=== PATIENT | female | born 2000 | race Caucasian/White ===

== ENCOUNTER 2019-05-20 21:21 | Observation (INO) ==
[2019-05-20 22:13] LABS: Bilirubin,Urine Negative (Negative); Blood,Urine Negative (Negative); Clarity,Urine Cloudy (Clear); Color,Urine Yellow (Yellow); Glucose,Urine (UA) Normal (Normal); Ketones,Urine Negative (Negative); Leukocyte Esterase,Urine Large (Negative); Nitrite,Urine Negative (Negative); Protein,Urine Negative (Neg-Trace); Specific Gravity,Urine 1.019 (1.010-1.025); Urobilinogen,Urine Normal (Normal)
[2019-05-20 22:14] LABS: Bacteria,Urine Moderate per hpf (None-Few); Hyaline Casts,Urine None Seen per lpf (None-Few); RBC,Urine 0-3 per hpf (0-3); Squamous Epithelial Cell,Urine Many per lpf (None-Few); WBC,Urine 50-100 per hpf (0-3)
[2019-05-21 00:05] LABS: Candida DNA DETECTED (Not Detect); Gardnerella DNA DETECTED (Not Detect); Trichomonas DNA Not Detected (Not Detect)
== END 2019-05-20 23:00 | disposition home or self-care (01) ==
LOC: 1NENULAB
PROVIDERS: ADMIT Registered Nurse; ATTEND Registered Nurse

== ENCOUNTER → 2019-06-21 23:28 | Observation (INO) ==
[~2019-06-21 23:28] MED LIST: EPHEDrine 50 MG/ML VIAL IVP PRN; Epidural Premix (fent/bupiv) 110 ML EP SCH
== END | disposition home or self-care (01) ==
LOC: 1NENULAB
PROVIDERS: ADMIT Obstetrics & Gynecology; ATTEND Obstetrics & Gynecology

== ENCOUNTER 2019-07-10 11:11 | Inpatient (IN) ==
[2019-07-10] MEDS ORDERED: Famotidine 20 MG/2 ML VIAL IVP PRN (11:14)
[2019-07-10] MEDS ORDERED: Naloxone 0.4 MG/ML INJ IVP PRN (11:14)
[2019-07-10] MEDS ORDERED: Metoclopramide 10 MG/2 ML VIAL IVP PRN (11:14)
[2019-07-10] MEDS ORDERED: Penicillin G Potassium 5,000,000 UNIT in 0.9 % Sodium Chloride Mini Bag 100 ML IVPB ONE (11:30)
[2019-07-10 11:49] LABS: Basophils % 0.2 %; Eosinophils % 0.4 %; Hematocrit 35.6 % (35.3-44.9); Hemoglobin 11.6 g/dL (11.5-15.4); Immature Granulocytes % 0.3 % (0-4); Lymphocytes # 1.4 K/mcL (0.6-4.6); Mean Corpuscular HGB Conc 32.6 g/dL (31.6-35.5); Mean Corpuscular Hemoglobin 25.8 pg (28.0-33.3); Mean Corpuscular Volume 79.1 fL (83.0-100.0); Mean Platelet Volume 10.6 fL (9.4-12.4); Monocytes # 0.4 K/mcL (0.0-1.3); Monocytes % 4.5 %; Neutrophils # 7.2 K/mcL (1.6-8.9); Platelet Count 230 K/mcL (140-400); Red Cell Distribution Width 14.1 % (11.5-14.5); Segmented Neutrophils % 79.6 %
[2019-07-10] MEDS ORDERED: miSOPROStoL 100 MCG TABLET PO STA (11:50)
[2019-07-10] MEDS: Ringers Solution, Lactated 1,000 ML IVC SCH ×3 (11:50→22:53)
[2019-07-10 11:58] LABS: Amphetamine Screen,Urine Negative ng/mL (Cutoff=1000); Barbiturate Screen,Urine Negative ng/mL (Cutoff=200); Benzodiazepines Screen,Urine Negative ng/mL (Cutoff=200); Cannabinoid Screen,Urine Negative ng/mL (Cutoff = 50); Cocaine Screen,Urine Negative ng/mL (Cutoff= 300); Opiate Screen,Urine Negative ng/mL (Cutoff=300); Phencyclidine Screen,Urine Negative ng/mL (Cutoff=25)
[2019-07-10] MEDS ORDERED: Terbutaline 1 MG/ML VIAL SQ ONE (11:58)
[2019-07-10] MEDS ORDERED: miSOPROStoL 25 MCG TABLET PO STA (12:01)
[2019-07-10] MEDS ORDERED: EPHEDrine 50 MG/ML VIAL IVP PRN (12:36)
[2019-07-10] MEDS: Penicillin G Potassium 2,500,000 UNIT in 0.9 % Sodium Chloride 100 ML IVPB SCH ×2 (16:04→20:04)
[2019-07-10] MEDS: Oxytocin 20 units/ LR 1000 mL 20 UNIT/1,000 ML BAG IVC SCH (18:17)
[2019-07-10] MEDS: Ondansetron 4 MG/2 ML VIAL IVP PRN (20:57)
[2019-07-10] MEDS ORDERED: *HR* FentaNYL (PF) 100 MCG/2 ML VIAL IVP PRN (20:59)
[2019-07-10] MEDS: Epidural Premix (fent/bupiv) 110 ML EP SCH (22:53)
[2019-07-11] MEDS: Penicillin G Potassium 2,500,000 UNIT in 0.9 % Sodium Chloride 100 ML IVPB SCH (03:59)
[2019-07-11] MEDS: Epidural Premix (fent/bupiv) 110 ML EP SCH (04:00)
[2019-07-11] MEDS: Ondansetron 4 MG/2 ML VIAL IVP PRN (04:10)
[2019-07-11] MEDS: Oxytocin 20 units/ LR 1000 mL 20 UNIT/1,000 ML BAG IVC SCH (07:36)
[2019-07-11] MEDS ORDERED: Rho Immune Globulin 1,500 UNIT SYRINGE IM PRN (07:58)
[2019-07-11] MEDS ORDERED: Oxytocin 20 units/ LR 1000 mL 20 UNIT/1,000 ML BAG IVC SCH (07:58)
[2019-07-11] MEDS ORDERED: Measles/Mumps/Rubella Vacc 0.5 ML VIAL SQ PRN (07:58)
[2019-07-11] MEDS: Prenatal Vit/FA 1 EACH TABLET PO SCH (09:58)
[2019-07-11] MEDS: Acetaminophen 325 MG TABLET PO PRN ×2 (12:44→20:04)
[2019-07-12 04:40] LABS: Basophils % 0.2 %; Eosinophils # 0.1 K/mcL (0.0-0.6); Hematocrit 29.3 % (35.3-44.9); Immature Granulocytes % 0.6 % (0-4); Lymphocytes # 2.2 K/mcL (0.6-4.6); Lymphocytes % 18.9 %; Mean Corpuscular HGB Conc 32.8 g/dL (31.6-35.5); Mean Corpuscular Hemoglobin 26.4 pg (28.0-33.3); Mean Corpuscular Volume 80.5 fL (83.0-100.0); Mean Platelet Volume 10.2 fL (9.4-12.4); Monocytes # 0.6 K/mcL (0.0-1.3); Monocytes % 5.5 %; Neutrophils # 8.5 K/mcL (1.6-8.9); Platelet Count 158 K/mcL (140-400); Red Blood Count 3.64 M/mcL (3.82-4.97); Red Cell Distribution Width 14.3 % (11.5-14.5); Segmented Neutrophils % 73.8 %; White Blood Count 11.5 K/mcL (4.3-11.1)
[2019-07-12 05:04] LABS: Hemoglobin 9.6 g/dL (11.5-15.4)
[2019-07-12 07:35] VITALS: BP 118/83
[2019-07-12] MEDS: Prenatal Vit/FA 1 EACH TABLET PO SCH (09:44)
== END 2019-07-12 13:08 | disposition home or self-care (01) | DRG 807 ==
LOC: 1NENULAB 11:11 → 1NENUOBS 07-11 07:44
PROVIDERS: ADMIT Obstetrics & Gynecology; ATTEND Obstetrics & Gynecology

== ENCOUNTER 2021-01-26 12:35 | Inpatient (IN) ==
[2021-01-26] MEDS ORDERED: Famotidine 20 MG/2 ML VIAL IVP PRN (12:50)
[2021-01-26] MEDS ORDERED: Naloxone 0.4 MG/ML INJ IVP PRN (12:50)
[2021-01-26] MEDS ORDERED: Ondansetron 4 MG/2 ML VIAL IVP PRN (12:50)
[2021-01-26] MEDS ORDERED: Lidocaine 1% 20 ML MDV INFILT PRN (12:50)
[2021-01-26] MEDS ORDERED: Metoclopramide 10 MG/2 ML VIAL IVP PRN (12:50)
[2021-01-26] MEDS ORDERED: Azithromycin 500 MG in 0.9 % Sodium Chloride 250 ML IVPB PRN (12:50)
[2021-01-26] MEDS ORDERED: *HR* Nalbuphine 10 MG/ML AMPUL IV PRN (12:50)
[2021-01-26] MEDS ORDERED: miSOPROStoL 25 MCG TABLET PO PRN (13:40)
[2021-01-26 13:53] LABS: Basophils % 0.2 %; Eosinophils % 0.4 %; Hematocrit 31.8 % (35.3-44.9); Hemoglobin 10.4 g/dL (11.5-15.4); Immature Granulocytes % 0.7 % (0-4); Lymphocytes # 1.8 K/mcL (0.6-4.6); Lymphocytes % 17.9 %; Mean Corpuscular HGB Conc 32.7 g/dL (31.6-35.5); Mean Corpuscular Hemoglobin 26.5 pg (28.0-33.3); Mean Corpuscular Volume 81.1 fL (83.0-100.0); Mean Platelet Volume 10.4 fL (9.4-12.4); Monocytes # 0.5 K/mcL (0.0-1.3); Monocytes % 5.4 %; Neutrophils # 7.4 K/mcL (1.6-8.9); Platelet Count 214 K/mcL (140-400); Red Blood Count 3.92 M/mcL (3.82-4.97); Red Cell Distribution Width 14.3 % (11.5-14.5); Segmented Neutrophils % 75.4 %; White Blood Count 9.8 K/mcL (4.3-11.1)
[2021-01-26 13:58] LABS: Amphetamine Screen,Urine Negative ng/mL (Cutoff=1000); Barbiturate Screen,Urine Negative ng/mL (Cutoff=200); Benzodiazepines Screen,Urine Negative ng/mL (Cutoff=200); Cannabinoid Screen,Urine Negative ng/mL (Cutoff = 50); Cocaine Screen,Urine Negative ng/mL (Cutoff= 300); Opiate Screen,Urine Negative ng/mL (Cutoff=300); Phencyclidine Screen,Urine Negative ng/mL (Cutoff=25)
[2021-01-26] MEDS: Ringers Solution, Lactated 1,000 ML IVC SCH ×2 (17:58→18:43)
[2021-01-26] MEDS ORDERED: *HR* FentaNYL (PF) 100 MCG/2 ML VIAL EP ONE (18:07)
[2021-01-26] MEDS ORDERED: EPHEDrine 50 MG/ML VIAL IVP PRN (18:07)
[2021-01-26] MEDS ORDERED: Ropivacaine/PF 0.2% 20 ML VIAL EP ONE (18:07)
[2021-01-26] MEDS ORDERED: *HR* FentaNYL (PF) 100 MCG/2 ML VIAL ONE (18:12)
[2021-01-26] MEDS ORDERED: Epidural Premix (fent/bupiv) 110 ML EP ONE (18:14)
[2021-01-26] MEDS ORDERED: Epidural Premix (fent/bupiv) 110 ML EP SCH (18:15)
[2021-01-26] MEDS ORDERED: Oxytocin 20 units/ LR 1000 mL 20 UNIT/1,000 ML BAG IVC ONE (21:21)
[2021-01-27] MEDS ORDERED: Oxytocin 20 units/ LR 1000 mL 20 UNIT/1,000 ML BAG IVC ONE ×2 (00:11→01:12)
[2021-01-27] MEDS ORDERED: Lanolin 7 G OINT...G. TP PRN (01:12)
[2021-01-27] MEDS ORDERED: Rho Immune Globulin 1,500 UNIT SYRINGE IM PRN (01:12)
[2021-01-27] MEDS ORDERED: Oxytocin 20 units/ LR 1000 mL 20 UNIT/1,000 ML BAG IVC SCH (01:12)
[2021-01-27] MEDS ORDERED: Ondansetron ODT 4 MG TAB.RAPDIS SL PRN (01:12)
[2021-01-27] MEDS ORDERED: Acetaminophen 325 MG TABLET PO SCH (01:12)
[2021-01-27] MEDS ORDERED: Ibuprofen 600 MG TABLET PO SCH (01:12)
[2021-01-27] MEDS ORDERED: Benzocaine/Menthol 56 GM AEROSOL SPRAY TP PRN (01:12)
[2021-01-27] MEDS ORDERED: Prenatal Vit/FA 1 EACH TABLET PO SCH (09:00)
[2021-01-27 16:23] VITALS: O2SAT 99
[2021-01-27 23:16] VITALS: BP 111/73; PULSE 71; TEMP 98.4
== END 2021-01-28 00:28 | disposition home or self-care (01) | DRG 806 ==
LOC: 1NENULAB 12:35 → 1NENUOBS 01-27 01:22
PROVIDERS: ADMIT Obstetrics & Gynecology; ATTEND Obstetrics & Gynecology